=== PATIENT | female | born 1950 | race American Indian/Alaskan Native ===

== ENCOUNTER 2017-07-11 13:10 | Emergency (ER) | payer MEDICARE, OTHER ==
[2017-07-11 17:41] VITALS: BP 154/94
== END 2017-07-11 18:21 | disposition left against medical advice (07) ==
LOC: ED 13:10
DX: I10 Essential (primary) hypertension (principal); R42 Dizziness and giddiness; Z53.21 Procedure and treatment not carried out due to patient leaving prior to being seen by health care provider

== ENCOUNTER 2019-03-24 01:15 | Emergency (ER) | payer MEDICARE ==
[2019-03-24] MEDS ORDERED: LORazepam 2 MG/ML VIAL IV ONE (03:36)
[2019-03-24] MEDS ORDERED: ONDANSETRON 4 MG/2 ML INJ IV ONE (03:36)
[2019-03-24] MEDS ORDERED: cloNIDine 0.2 MG TAB PO ONE (03:36)
[2019-03-24] MEDS ORDERED: DIPHENOXYLATE/ATROPINE TAB PO ONE (03:36)
--- NOTE | 2019-03-24 03:45 | Emergency Department Report ---
HPI - General Chief Complaint: Medical Clearance Time Seen by Provider: 03/24/19 02:41 - HPI HPI: Room 20 The pt is a 69 y/o F p/w a cc of tramadol withdrawal. The pt takes Tramadol daily for chronic OA pain. The pt states her pharmacy shorted her last prescription accidently and she did not notice until later. The pt states she began halving her doses ~ 2 weeks ago and ran out completely days ago. The pt states she went to [facility] ED this AM and was given a RX for tramadol but she cannot find a pharmacist to fill it b/c it is too soon based off of her previous RXs. The pt states today at 18:00 she became jittery/restless, and has had nausea and diarrhea. The pt states her goal is to discontinue tramadol use. ED Past Medical Hx - Past Medical History Previous Medical History?: Yes Hx Hypertension: Yes Hx Diabetes: Yes Hx Arthritis: Yes (chronic osteoarthritis to bilateral knees, elbows, shoulders, and low back ) Additional medical history: high cholesterol - Surgical History Past Surgical History?: Yes Additional Surgical History: Bilateral knee replacement. - Family History Family history: no significant - Social History Smoking Status: Former Smoker Substance Use Type: None - Medications Home Medications: Home Medications Medication Instructions Recorded Confirmed Last Taken Type Diphenoxylate/Atropine [Lomotil] 2 tab PO QID PRN #20 tablet 03/24/19 Unknown Rx LORazepam [Ativan] 1 mg PO BID #5 tab 03/24/19 Unknown Rx Ondansetron [Zofran ODT TAB] 8 mg PO Q8HR #20 tab.rapdis 03/24/19 Unknown Rx traMADol 100 mg PO TID 03/24/19 03/24/19 Unknown History ED Review of Systems ROS: Stated complaint: TRAMADOL WITHDRAWL Other details as noted in HPI Constitutional: other (jittery) Eyes: denies: eye pain ENT: denies: throat pain Respiratory: no symptoms reported Cardiovascular: denies: chest pain Endocrine: denies: no symptoms reported Gastrointestinal: nausea, diarrhea Genitourinary: denies: dysuria Musculoskeletal: denies: back pain Neurological: denies: headache Physical Exam - Physical Exam Vital Signs: Vital Signs 03/24/19 03/24/19 03/24/19 01:20 03:20 03:21 Temperature 98.0 F Pulse Rate 75 81 Respiratory 18 18 18 Rate Blood Pressure 187/88 Blood Pressure 192/77 [Right] O2 Sat by Pulse 98 98 97 Oximetry Physical Exam: GEN: WDWN f lying on stretcher appearring sl anxious HEENT: EOMI NECK: Trachea midline LUNGS: No resp Distress CV: RRR no m/r/g ABD: S/NT/ND SKIN: No Diaphoresis NEURO: GCS 15. mild tremors MS: no evidence of acute injury ED Course Vital Signs 03/24/19 03/24/19 03/24/19 01:20 03:20 03:21 Temperature 98.0 F Pulse Rate 75 81 Respiratory 18 18 18 Rate Blood Pressure 187/88 Blood Pressure 192/77 [Right] O2 Sat by Pulse 98 98 97 Oximetry ED Medical Decision Making - Differential Diagnosis tramadol withdrawal Critical care attestation.: If time is entered above; I have spent that time in minutes in the direct care of this critically ill patient, excluding procedure time. ED Disposition Clinical Impression: Moderate tramadol dependence, Withdrawal complaint Disposition: DC-01 TO HOME OR SELFCARE Is pt being admited?: No Does the pt Need Aspirin: No Condition: Stable Prescriptions: LORazepam [Ativan] 1 mg PO BID #5 tab Diphenoxylate/Atropine [Lomotil] 2 tab PO QID PRN #20 tablet PRN Reason: Diarrhea Ondansetron [Zofran ODT TAB] 8 mg PO Q8HR #20 tab.[email or web address] Referrals: PRIMARY CARE, [Primary Care Provider] - [facility]
[2019-03-24] MEDS ORDERED: hydrOXYzine PAMOATE 25 MG CAP ONE (04:21)
[2019-03-24 07:16] VITALS: BP 174/86
== END 2019-03-24 04:40 | disposition home or self-care (01) ==
LOC: ED 01:15
DX: F55.8 Abuse of other non-psychoactive substances (principal); I10 Essential (primary) hypertension; E11.9 Type 2 diabetes mellitus without complications; M19.90 Unspecified osteoarthritis, unspecified site; E78.00 Pure hypercholesterolemia, unspecified; Z87.891 Personal history of nicotine dependence; Z79.899 Other long term (current) drug therapy; Z98.890 Other specified postprocedural states
CPT/HCPCS: 96374; 96375; 99283; J2060; J2405; Q0177